=== PATIENT | male | born 1960 | race Caucasian/White ===

== ENCOUNTER → 2024-03-06 11:33 | Outpatient (REF) | payer MEDICARE, SELFPAY ==
[2024-03-06 12:59] LABS: % Basophils 1.2 % (0-2); % Immature Granulocytes 0.4 % (0-0.5); % Lymphocytes 25.6 % (20.5-51.1); % Monocytes 8.1 % (1.7-9.3); % Neutrophils 63.7 % (42.2-75.2); Absolute Basophils 0.1 10^3/uL (0-0.2); Absolute Eosinophils 0.1 10^3/uL (0-0.7); Absolute Monocytes 0.6 10^3/uL (0.1-0.6); Absolute Neutrophils 4.9 10^3/uL (1.4-6.5); Hematocrit 48.8 % (39.0-52.0); Hemoglobin 17.1 g/dL (13.0-18.0); Mean Platelet Volume 9.6 fL (7.4-10.4); Nucleated Red Blood Cells % 0 % (-); Platelet Count 251 10^3/uL (130-400); Red Blood Cell Count 5.03 10^6/uL (4.70-6.10); White Blood Cell Count 7.7 10^3/uL (4.8-10.8)
[2024-03-06 13:28] LABS: Free T4 1.02 ng/dl (0.78-2.19); Vitamin D, 25-OH*** 30.6 ng/mL (30-80)
[2024-03-06 13:32] LABS: ALT (SGPT) 46 U/L (0-50); AST (SGOT) 36 U/L (17-59); Albumin 4.6 g/dl (3.5-5.0); Alkaline Phosphatase 64 U/L (38-126); Blood Urea Nitrogen 9 mg/dl (9-20); Calcium 9.6 mg/dl (8.4-10.2); Carbon Dioxide 22 mmol/L (22-30); Chloride 99 mmol/L (98-107); Glucose 76 mg/dl (70-99); HDL Cholesterol 59 mg/dl; LDL Cholesterol, Calculated 115 mg/dl; Potassium 4.5 mmol/L (3.5-5.1); Sodium 133 mmol/L (135-145); Total Bilirubin 0.6 mg/dl (0.2-1.3); Total Cholesterol 205 mg/dl (50-199); Total Protein 7.4 g/dl (6.3-8.2); Triglyceride 158 mg/dl (10-149); Very Low Density Lipoprotein 31 mg/dl (0-30); eGFR > 60.00
[2024-03-06 13:41] LABS: PSA, Total - Screen 1.28 ng/ml (0.0-4.0); TSH 2.93 uIU/ml (0.47-4.68)
== END ==
LOC: REG 11:33
PROVIDERS: ATTENDING PHYSICIAN Physician Assistant
DX: M54.16 Radiculopathy, lumbar region (principal); Z12.5 Encounter for screening for malignant neoplasm of prostate; E03.9 Hypothyroidism, unspecified; I10 Essential (primary) hypertension; F32.9 Major depressive disorder, single episode, unspecified; E55.9 Vitamin D deficiency, unspecified; E78.2 Mixed hyperlipidemia; F10.10 Alcohol abuse, uncomplicated
CPT/HCPCS: 36415; 72110; 80053; 80061; 82306; 84439; 84443; 85025; G0103

== ENCOUNTER → 2024-05-06 11:19 | Outpatient (REF) | payer MEDICARE, SELFPAY | LOC: MRI 3T 11:19 | PROVIDERS: ATTENDING PHYSICIAN Internal Medicine; FAMILY PHYSICIAN Physician Assistant | DX: M54.59 Other low back pain (principal); M47.817 Spondylosis without myelopathy or radiculopathy, lumbosacral region; M51.36 Other intervertebral disc degeneration, lumbar region; M54.16 Radiculopathy, lumbar region; M48.062 Spinal stenosis, lumbar region with neurogenic claudication | CPT/HCPCS: 72148 ==

== ENCOUNTER → 2025-07-24 10:13 | Outpatient (REF) | payer MEDICARE, SELFPAY ==
[2025-07-24 11:24] LABS: Hematocrit 49.0 % (39.0-52.0); Hemoglobin 16.9 g/dL (13.0-18.0); Mean Corp Hgb Conc. 34.5 g/dL (33.0-37.0); Mean Corpuscular Volume 98.0 fL (80.0-94.0); Nucleated Red Blood Cells % 0 % (-); Platelet Count 273 10^3/uL (130-400); Red Cell Dist. Width 12.7 % (11.5-14.5)
[2025-07-24 11:54] LABS: ALT (SGPT) 28 U/L (0-50); AST (SGOT) 24 U/L (17-59); Albumin 4.7 g/dl (3.5-5.0); Alkaline Phosphatase 61 U/L (38-126); Blood Urea Nitrogen 6 mg/dl (9-20); Calcium 9.7 mg/dl (8.4-10.2); Carbon Dioxide 28 mmol/L (22-30); Chloride 98 mmol/L (98-107); Glucose 97 mg/dl (70-99); HDL Cholesterol 71 mg/dl; LDL Cholesterol, Calculated 131 mg/dl; Potassium 4.8 mmol/L (3.5-5.1); Sodium 133 mmol/L (135-145); Total Protein 7.7 g/dl (6.3-8.2); Uric Acid 3.1 mg/dl (3.5-8.5); Very Low Density Lipoprotein 18 mg/dl (0-30); eGFR > 60.00
[2025-07-24 12:18] LABS: PSA, Total - Screen 1.25 ng/ml (0.0-4.0)
== END ==
LOC: REG 10:13
PROVIDERS: ATTENDING PHYSICIAN Physician Assistant
DX: M25.50 Pain in unspecified joint (principal); I10 Essential (primary) hypertension; E03.9 Hypothyroidism, unspecified; F32.9 Major depressive disorder, single episode, unspecified; E55.9 Vitamin D deficiency, unspecified; E78.2 Mixed hyperlipidemia; K21.9 Gastro-esophageal reflux disease without esophagitis; F17.200 Nicotine dependence, unspecified, uncomplicated; Z12.5 Encounter for screening for malignant neoplasm of prostate
CPT/HCPCS: 36415; 80053; 80061; 84443; 84550; 85025; G0103

== ENCOUNTER → 2025-08-27 06:53 | Outpatient (REF) | payer MEDICARE, SELFPAY ==
[2025-08-27 08:31] LABS: Urine Character Clear (Clear)
[2025-08-27 08:58] LABS: Hematocrit 48.4 % (39.0-52.0); Hemoglobin 16.6 g/dL (13.0-18.0); Mean Corp Hgb Conc. 34.3 g/dL (33.0-37.0); Mean Corpuscular Volume 96.2 fL (80.0-94.0); Nucleated Red Blood Cells % 0 % (-); Platelet Count 267 10^3/uL (130-400); Red Cell Dist. Width 13.2 % (11.5-14.5)
[2025-08-27 10:52] LABS: Urine Squamous Cell 0-2 /LPF (Few)
[2025-08-27 10:53] LABS: Urine Red Blood Cell 0-2 /HPF (0-2); Urine White Cell 0-2 /HPF (0-5)
[2025-08-27 11:04] LABS: ALT (SGPT) 29 U/L (0-50); AST (SGOT) 27 U/L (17-59); Albumin 4.6 g/dl (3.5-5.0); Alkaline Phosphatase 59 U/L (38-126); Blood Urea Nitrogen 6 mg/dl (9-20); Calcium 9.3 mg/dl (8.4-10.2); Carbon Dioxide 26 mmol/L (22-30); Chloride 97 mmol/L (98-107); Glucose 101 mg/dl (70-99); Potassium 4.5 mmol/L (3.5-5.1); Sodium 130 mmol/L (135-145); Total Protein 7.6 g/dl (6.3-8.2); Uric Acid 4.2 mg/dl (3.5-8.5); eGFR > 60.00
== END ==
LOC: RAD 06:53
PROVIDERS: ATTENDING PHYSICIAN Surgery Vascular Surgery; FAMILY PHYSICIAN Physician Assistant
DX: I73.9 Peripheral vascular disease, unspecified (principal); R82.998 Other abnormal findings in urine; E87.1 Hypo-osmolality and hyponatremia; I10 Essential (primary) hypertension; L03.90 Cellulitis, unspecified
CPT/HCPCS: 36415; 75635; 80053; 81003; 81015; 83930; 83935; 84550; 85025; 88112; 93922; 93925; Q9967

== ENCOUNTER 2025-08-31 06:23 | Inpatient (IN) | payer MEDICARE, SELFPAY ==
[2025-08-31] VITALS (9 sets, daily range): BP systolic 119–182; BP diastolic 87–126; BMI 32.4
[2025-08-31] MEDS: PERIDEX 0.12% ORAL RINSE 15 ML PO (07:04)
[2025-08-31] MEDS: VANCOCIN 530 MG IV (07:09)
[2025-08-31] MEDS: NSS 500 IV (07:10)
[2025-08-31] MEDS: BACTROBAN NASAL 1 GRAM NASAL (07:14)
--- NOTE | 2025-08-31 07:19 | W.SUR.PREOP ---
Pre-Operative Surgical Note
-
I have examined this patient prior to the performance of the scheduled procedure.
The patient's condition is unchanged from the time of the current History and
Physical and the patient is able to undergo the scheduled procedure.
[2025-08-31 09:09] LABS: B.E. - POC -3.3 mmol/L; Glucose - POC 110 mg/dl (70-99); HCO3 - POC 22 mmol/L (21-28); Hematocrit - POC 42 % PCV (42-52); Hemodilution- POC No; Hemoglobin Calculated - POC 14.4; Ionized Calcium - POC 1.06 mmol/L (1.15-1.33); Lactate - POC 1.19 mmol/L (0.36-0.75); O2 Saturation %Calculated-POC 99.8 % (94-98); PCO2 - POC 40 mmHg (35-48); PO2 - POC 232 mmHg (83-108); Potassium - POC 8.1 mmol/L (3.5-5.1); Sodium - POC 129 mmol/L (136-145); Specimen Type - POC Arterial; pH - POC 7.35 (7.35-7.45)
[2025-08-31 09:17] LABS: INR 1.06; PT 14.1 Sec (11.4-14.6)
[2025-08-31 09:18] LABS: APTT 26.8 Sec (23.4-35.0)
[2025-08-31 11:00] LABS: B.E. - POC -4.6 mmol/L; Glucose - POC 132 mg/dl (70-99); HCO3 - POC 21 mmol/L (21-28); Hematocrit - POC 43 % PCV (42-52); Hemodilution- POC No; Hemoglobin Calculated - POC 14.5; Ionized Calcium - POC 1.08 mmol/L (1.15-1.33); Lactate - POC 1.23 mmol/L (0.36-0.75); O2 Saturation %Calculated-POC 99.7 % (94-98); PCO2 - POC 41 mmHg (35-48); PO2 - POC 221 mmHg (83-108); Potassium - POC 5.2 mmol/L (3.5-5.1); Sodium - POC 133 mmol/L (136-145); Specimen Type - POC Arterial; pH - POC 7.32 (7.35-7.45)
--- NOTE | 2025-08-31 12:07 | OR.RPT ---
Operative Report
Operative Report
PROCEDURE DATE: 08/31/2025
Preoperative diagnosis: Chronic limb threatening ischemia right lower extremity.
Postoperative diagnosis: Same
Procedure: Right femoral to below the knee popliteal artery bypass with ipsilateral nonreversed greater saphenous vein conduit.
Surgeon: Chance
Pick And Shovel Worker: ARMIDA Neil, required for all aspects of procedure including assistance with traction/countertraction, following suture line, assistance with closure.
Complications: None
Anesthesia: General
Indications for procedure:
Chronic limb-threatening ischemia with severe ischemic rest pain right foot. Long segment flush occlusion of the superficial femoral artery and popliteal artery. Risk/benefits/alternatives of bypass were fully discussed. Patient understood and
wished to proceed. Due to severity of his pain and symptoms and severe rubor on exam, he was expedited for bypass.
Description of procedure:
Patient was identified brought to the operating room placed on the table in supine position. After the adequate administration of anesthesia he was prepped and draped in the standard surgical fashion. A standard preoperative timeout was undertaken
and everybody was in agreement the plan. An oblique incision was made in the right groin that was carried through the skin and subcutaneous tissue and through Celeste's fascia layer, and then the femoral sheath was incised in a longitudinal
direction (despite the oblique incision). Common femoral artery was identified and carefully dissected proximally, and a vessel loop passed around it after careful circumferential dissection. It was noted to be very soft. I then continued
dissection onto the superficial femoral artery and then passed a vessel loop around it. While the common femoral artery was nicely soft and pulsatile, there is no pulse in the superficial femoral artery. I then dissected back to the profunda
origin. In the common femoral artery on the medial side just proximal to the profunda origin there was an additional posterior running branch that was carefully circumferentially dissected and vessel loop passed around it. Then the profunda was
carefully circumferentially dissected at its origin and a vessel loop passed around it.
Now I turned my attention to distal exposure. I had marked the greater saphenous vein course with an ultrasound prior to prepping and draping. I therefore carefully made an incision in the medial proximal right calf about 1 fingerbreadth inferior
to the tibia. This carried through skin subcutaneous tissue. The greater saphenous vein was identified in the subcutaneous tissues. I carefully dissected it and mobilized it. Any branches were ligated between silk ties and divided to allow
better exposure. Once I was able to mobilize the greater saphenous vein I then retracted out of the way and then incised the crural fascia with the electrocautery. Once through the crural fascial plane, I then identified the gastrocnemius muscle
and reflected posteriorly. The popliteal vein was first identified, and then just medial was the popliteal artery which I carefully circumferentially dissected for suitable length. It was noted to be soft. I now passed a vessel loop around it
proximally and distally.
Now that I had proximal and distal arterial exposure, I turned my attention to the greater saphenous vein. As I had started mobilizing it in this incision, I then made 2 separate longitudinal long skip incisions along the thigh and fully mobilized
it through these incisions (and the distal arterial exposure incision as well). Any branches were ligated between silk ties and clips and then divided. As such I was able to mobilize a suitable length of vein. Proximally I connected it into the
groin incision. There was a large branch confluence just proximal to the saphenofemoral junction. I elected to ligate the vein just distally to here. I used a 2-0 silk suture ligature and ligated the vein there and then transected just distal to
there. Distally in the calf the vein was ligated at its distalmost extent of exposure with a heavy silk tie and a clip. We now distended the vein under heparinized saline. It distended well.
Now, a Immanuel tunneler was used to create a subsartorial tunnel between the 2 arterial exposure sites (the groin and the below the knee popliteal artery). Now the patient was given 8000's of intravenous heparin. Once this had circulated, the
profunda double loop vessel loop was tightened. Other branch vessel loop was also tightened. Common femoral artery was clamped proximally with a Derra clamp. Note I tried to preserve a small portion of the superficial femoral artery to try to do
an end-to-end anastomosis (the SFA and popliteal artery completely occluded with thrombus based on CT scan and there were no real branches emanating from it). I felt that I might be able to tease clot out of the proximal SFA and therefore save a
slight amount of vein length. I therefore ligated the SFA distally in the field here with a heavy silk tie. I then transected it. There was thrombus. However I difficulty getting this thrombus out. I therefore ended up having to make an
arteriotomy on the anterior wall of the proximal stump of SFA that extended onto the very distal common femoral/femoral bifurcation. I therefore then essentially created a spatulation in the proximal SFA to allow an end-to-end anastomosis here.
The posterior wall had a little plaque which I locally endarterectomized small portion. The remainder of the plaque was well adherent. There was no stenosis. Based on the initial plaque is on the SFA, I suspect that the this was a primary in situ
thrombotic event in the SFA that had resulted in the occlusion. Regardless at this point I now spatulated the greater saphenous vein maintaining it in a nonreversed fashion. I then sewed an end-to-end anastomosis to the very proximal SFA that had
been spatulated as well. (End-to-end spatulated anastomosis) with a running 6-0 Prolene suture. I completed and tied down the suture line. I then released the common femoral artery clamp. I then used a [employer] valvulotome to valvulotomize all the
valves, and I ran through the valvulotome twice to ensure no retained valves. Now I released the vessel loop in the profunda as well after I flushed out the vein graft. I now marked the anterior surface of the vein graft under distention to avoid
any kinking or twisting and then passed it through the tunnel. I confirm no kinking or twisting. There is excellent pulsatile flow still.
placed a bulldog clamp on the vein graft proximally. I now ligated the popliteal artery very proximally in my field with a heavy silk tie and a clip. I placed a clamp on the distal popliteal artery. I then transected just distal to the ligature.
Now I had a slightly mobilized segment of popliteal artery. Therefore I was able to then spatulated this, and then trimmed and spatulated the distal aspect of the vein graft and so a spatulated end-to-end anastomosis between the vein graft and the
popliteal artery. Prior to completing and tying down my suture line I backbled the creek popliteal artery, and then flushed out the vein bypass graft. I flushed heparinized saline. I then completed and tied down my suture line. Now I released
clamps and bulldogs. There is excellent pulsatile flow in the vein graft and in the popliteal artery distally. Doppler confirmed an excellent graft dependent signal. I could now palpate a dorsalis pedis pulse on the foot. Doppler confirmed
excellent graft dependent signal.
At this point I was very satisfied. I ensured that there was no mechanical compression of the vein graft distally, and with the knee in flexion and extension. I was very satisfied. All incision sites were copiously irrigated. Full hemostasis was
achieved and confirmed (protamine was given reverse heparin). All incision sites were then closed using layered Vicryl suture (2-0 Vicryl, 3-0 Vicryl, 4-0 Monocryl subcuticular running sutures). Dermabond was applied. Dressings were applied. The
patient tolerated the procedure well. All sponge, needle, instrument counts were correct at the end of the case. The patient was transported to recovery room in stable condition.
[2025-08-31 12:29] LABS: Glucose - Point of Care 135 mg/dl (70-99)
[2025-08-31] MEDS: DUONEB 3 ML INH (12:31)
[2025-08-31 12:47] LABS: Hematocrit 43.6 % (39.0-52.0); Hemoglobin 15.0 g/dL (13.0-18.0); Mean Corp Hgb Conc. 34.4 g/dL (33.0-37.0); Mean Corpuscular Volume 96.9 fL (80.0-94.0); Platelet Count 236 10^3/uL (130-400); Red Cell Dist. Width 13.1 % (11.5-14.5)
[2025-08-31 12:49] LABS: Blood Urea Nitrogen 3 mg/dl (9-20); Calcium 8.0 mg/dl (8.4-10.2); Carbon Dioxide 23 mmol/L (22-30); Chloride 102 mmol/L (98-107); Estimated Creatinine Clearance 121 ml/min; Glucose 134 mg/dl (70-99); Potassium 5.0 mmol/L (3.5-5.1); Sodium 128 mmol/L (135-145); eGFR > 60.00
--- NOTE | 2025-08-31 14:02 | CON.INTV ---
Consultation
Consultation Request
Date/Time Consultation Requested: 08/31/2025831
Date/Time Consultation Performed: 08/31/2025900
Requesting Provider: VANDANA Mukherjee
Performing Provider: Dr. Thomas
Reason for Consultation: Right lower extremity arterial bypass
Medical History
-
Chief Complaint: Right foot pain
History of Present Illness:
65-year-old male active tobacco smoker (currently smokes 2 PPD) with a past medical history of PAD, GERD, hypertension, hypothyroidism and alcohol use who presents for elective right arterial bypass due to right foot resting pain. Patient known to
the vascular surgery service with last visit on 08/28/[address] Fletcher. Recent FRANK of the right leg showed severely reduced measurement of 0.19 with absent digital signal with long segment SFA occlusion with reconstitution of monophasic continuous
flow within the popliteal artery. Left leg FRANK was within normal limits at 1.07 with multiphasic flow throughout the leg with no focal or flow-limiting stenosis appreciated. This was followed by a CT angio abdominal aorta with runoff on 08/27/2025
showing aortic atherosclerotic changes without an aneurysm or flow-limiting stenosis, and a long segment occlusion of right SFA/popliteal artery with occlusion of the TP trunk with reconstitution of peroneal and posterior tibial in the proximal
calf. Given concern for a relatively acute/subacute occlusion of the right SFA in the setting of his severe constant right foot pain (started approximately 2 months ago after stubbing his foot, he was recommended for a vascular intervention which
he agreed to. Today, he underwent a right femoral to below the knee popliteal artery bypass with ipsilateral nonreversed greater saphenous vein conduit. There were no complications. He was transferred to be ICU postoperatively for further care,
and Health Education Director service consulted for additional management/recommendations.
When I saw the patient he was resting in bed in no acute distress. He says that the right sided heel pain is not there anymore. Heart rate currently 116, BP 169/93 (via A-line), and he is saturating 89-90% on room air and breathing comfortably.
Currently denies chest pain, ADHIKARI, nausea, vomiting, fevers chills.
Of note, pt had arrived to ICU at approximately 1350.
PMHx: PAD, hyperlipidemia, GERD, hypothyroidism, hypertension, alcohol use, tobacco use (currently smokes 2 PPD)
PSHx: Non-contributory
Past Medical History
Past Medical History: Other (Above as per HPI)
Past Surgical History: Other (Above as per HPI)
Social History
Tobacco: Smoker (Carries a >95-38-swfo-year history, smoking between 1-2 PPD (even up to 3PPD at one point) x 50 years (has also quit 2-3 times in the past))
Alcohol: Daily (12 Michelob beers per day)
Drug: None
Family History
Family History: Reviewed & Not Pertinent
Allergies / Home Medications
Allergies
Allergy/AdvReac Type Severity Reaction Status Date / Time
Penicillins Allergy diarrhea Verified 08/28/25 13:06
Home Medications
�Medication �Instructions �Recorded �Confirmed �Last Taken �Type
acetaminophen 325 mg tablet 650 mg PO Q4H PRN pain 08/28/25 08/31/25 08/30/25 09:00 History
(Tylenol)
losartan 50 mg tablet 50 mg PO DAILY Blood Pressure 08/28/25 08/31/25 08/27/25 19:00 History
metoprolol succinate 25 mg 25 mg PO DAILY Blood Pressure 08/28/25 08/31/25 08/27/25 09:00 History
tablet,extended release 24 hr
naproxen sodium 220 mg tablet 220 mg PO Q12H PRN pain 08/28/25 08/31/25 08/28/25 09:00 History
(Aleve)
Review of Systems
-
History Source: Patient
All other systems: Negative unless noted
Vitals / Labs / Diagnostic Testing
Vital Signs
Temp Pulse Resp BP Pulse Ox
99.2 F 106 9 133/95 95
08/31/25 15:01 08/31/25 13:00 08/31/25 13:00 08/31/25 13:00 08/31/25 17:21
Lab Data
08/31/25 12:26
08/31/25 12:26
Laboratory Results
08/31/25
08:50
PT 14.1
INR 1.06
APTT 26.8
Diagnostic Testing:
Physical Exam
-
HEENT: Normocephalic and Anicteric
Cardiovascular: S1/S2 and Peripheral Edema (negative)
Respiratory: Wheeze (negative), Rales (negative), Rhonchi (negative) and Non-Labored Respirations
GI: Soft, Non Distended, Non Tender and Normal Bowel Sounds
Neurology: Awake, Alert, Oriented and Tremors (negative)
Skin: Warm and Dry
General: Respiratory Distress (negative), Comfortable, Fever (negative) and Chills (negative)
Assessment
-
Assessment: 65-year-old male active tobacco smoker (currently smokes 2 PPD) with a past medical history of PAD, GERD, hypertension, hypothyroidism and alcohol use who presents for elective right arterial bypass due to right foot resting pain.
Patient known to the vascular surgery service with last visit on 08/28/[address] Fletcher. Recent FRANK of the right leg showed severely reduced measurement of 0.19 with absent digital signal with long segment SFA occlusion with reconstitution of
monophasic continuous flow within the popliteal artery. Left leg FRANK was within normal limits at 1.07 with multiphasic flow throughout the leg with no focal or flow-limiting stenosis appreciated. This was followed by a CT angio abdominal aorta
with runoff on 08/27/2025 showing aortic atherosclerotic changes without an aneurysm or flow-limiting stenosis, and a long segment occlusion of right SFA/popliteal artery with occlusion of the TP trunk with reconstitution of peroneal and posterior
tibial in the proximal calf. Given concern for a relatively acute/subacute occlusion of the right SFA in the setting of his severe constant right foot pain (started approximately 2 months ago after stubbing his foot, he was recommended for a
vascular intervention which he agreed to. On 08/31/2025, he underwent a right femoral to below the knee popliteal artery bypass with ipsilateral nonreversed greater saphenous vein conduit. There were no complications. He was transferred to be ICU
postoperatively for further care, and Health Education Director service consulted for additional management/recommendations.
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
Impression:
#Chronic limb threatening ischemia of right lower extremity s/p right femoral to below the knee popliteal artery bypass with ipsilateral nonreversed great saphenous vein conduit (POD #0)
#Leukocytosis
#Hyponatremia
#Hypocalcemia
Plan:
Postoperative surgical intensive care unit monitoring
Supplemental oxygen as needed to maintain SpO2 >90-94%
prn nebulized bronchodilators - not currently bronchospastic
Incentive spirometry encouraged 10x per hour for at least 4 hrs a day
Aspiration precautions
Pain control
Neuro and vascular checks per protocol
Maintain MAP>65
Replete electrolytes with K>4, Mg>2
Maintain euglycemia with goal BG 140-180
Vascular surgery following-correspondence and operative notes reviewed
Transfuse blood products as needed to keep Hb>7g/dL, and plt>50k (given post-operative status)
Given patient's significant tobacco use, he likely has COPD however he remains asymptomatic. Offered pulmonary office follow-up for full PFTs for a baseline. He also needs to obtain annual lung cancer screening as he qualifies via USPSTF
guidelines. I will make him an appointment to see me in the office, and hopefully he will take steps towards quitting smoking.
DVT prophylaxis
Early nutrition
Early mobilization
Critical care statement: A total of 44 minutes of critical care time was provided for this patient today. This includes management of unstable vital signs, evaluation of the patient at bedside, reviewing the patient's pertinent medical records
including radiographs, microbiology, laboratory evaluations, and discussion with primary team, consultants, pharmacy, nutrition, physical therapy, case management, charge nurse, critical care nursing, and respiratory therapy.
[2025-08-31 14:32] LABS: Glucose - Point of Care 150 mg/dl (70-99)
[2025-08-31] MEDS: NSS 1000 IV ×2 (15:09→22:00)
[2025-08-31] MEDS: TOPROL XL 25 MG PO (15:09)
[2025-08-31] MEDS: COZAAR 50 MG PO (15:10)
[2025-08-31] MEDS: HEPARIN 5000 UNITS SC (16:17)
[2025-08-31] MEDS: LOW STRENGTH ASPIRIN 81 MG PO (16:17)
[2025-08-31] MEDS: ROXICODONE 5 MG PO (16:47)
[2025-08-31] MEDS: LIPITOR 10 MG PO (16:47)
[2025-08-31 17:12] LABS: GGTP 42 U/L (15-73); Magnesium 2.1 mg/dl (1.6-2.3)
--- NOTE | 2025-08-31 17:37 | PTCARENOTE ---
1350-Received pt from PACU via bed.Pt is awake and alert.Speech is appropriate.Pt c/o right heel and occasional right groin pain.+CHAVIRA.SR noted.IVF infusing.Right A Line at mid axillary.POX 95% on RA.+ FLOOD.Inspiratory/expiratory wheeze and coarse
rhonchi throughout.Occasional moist non productive cough noted.Appetite good.Rodriguez draining yellow urine.Right groin,right leg incisions intact with dressings.BL DP by Doppler signal.
1430- BP 175/100.ELECTRICAL SYSTEMS ENGINEER made aware.Pt received Cozaar and Metoprolol as ordered.
1650-Pt c/o right heel pain.Received Oxycodone.Right heel elevated with pillow.
[2025-08-31] MEDS: DILAUDID 0.5 MG IV (18:44)
[2025-08-31 18:48] LABS: Urine Character Clear (Clear)
[2025-08-31] MEDS: ATIVAN 1 MG PO (19:27)
[2025-08-31] MEDS: THIAMINE INJECTION 200 MG IV (19:27)
--- NOTE | 2025-08-31 19:30 | PTCARENOTE ---
Unable to verify accuracy of vital signs prior to 1900.
[2025-08-31 19:38] LABS: Urine Red Blood Cell >100 /HPF (0-2); Urine Squamous Cell 0-2 /LPF (Few)
--- NOTE | 2025-08-31 20:00 | PTCARENOTE ---
Assumed care at 1900. Status post RLE arterial bypass. NSR on the monitor. See worklist for neurovascular check details. PRN ativan given for MSAS. Patient states that 'somebody needs to bring me a beer.'
[2025-09-01] VITALS (15 sets, daily range): BP systolic 139–182; BP diastolic 88–135; BMI 30.7
[2025-09-01] MEDS: HEPARIN 5000 UNITS SC ×4 (00:02→22:58)
--- NOTE | 2025-09-01 00:42 | PTCARENOTE ---
No change from previous assessment. A line leveled and zeroed. q1h neurovascular/skin checks continue.
[2025-09-01] MEDS: ROXICODONE 5 MG PO ×5 (03:18→20:32)
[2025-09-01 03:20] LABS: Hematocrit 41.8 % (39.0-52.0); Hemoglobin 14.0 g/dL (13.0-18.0); Mean Corp Hgb Conc. 33.5 g/dL (33.0-37.0); Mean Corpuscular Volume 102.2 fL (80.0-94.0); Platelet Count 203 10^3/uL (130-400); Red Cell Dist. Width 13.4 % (11.5-14.5)
[2025-09-01 03:33] LABS: INR 1.07; PT 14.3 Sec (11.4-14.6)
[2025-09-01 03:34] LABS: APTT 27.0 Sec (23.4-35.0)
[2025-09-01 04:40] LABS: Blood Urea Nitrogen 6 mg/dl (9-20); Calcium 8.6 mg/dl (8.4-10.2); Carbon Dioxide 25 mmol/L (22-30); Chloride 103 mmol/L (98-107); Estimated Creatinine Clearance 118 ml/min; Glucose 102 mg/dl (70-99); Potassium 4.3 mmol/L (3.5-5.1); Sodium 130 mmol/L (135-145); eGFR > 60.00
[2025-09-01] MEDS: DILAUDID 0.5 MG IV ×4 (06:15→22:57)
--- NOTE | 2025-09-01 06:50 | PTCARENOTE ---
NO change from previous assessment. A line dressing changed due to leaking. PRN oxycodone and dilaudid given for RLE pain. Neurovascular and skin checks WNL. See worklist for details.
--- NOTE | 2025-09-01 07:42 | W.PN.VS ---
Addendum entered and electronically signed by Joe Ambrosio III, MD 09/01/25 11:29:
Patient was seen and examined in collaboration with VANDANA Duarte. I agree with the history, physical exam, assessment and plan.
[id number]
Vascular Surgery
Original Note:
Today's Communication / Plan
-
Seen and accessed with Dr Ambrosio
Assessment/Plan
-
POD 1 RLE fem-below knee pop bypass with vein graft
Plan:
DC Whigham
DC ambrosio
DC IVF
OOB-chair this am, can progress to ambulation later today
Increase diet
PO meds
Alcohol withdrawal protocol
Likely can transfer to tele later today
Subjective Data
-
Date of Service: September 01, 2025
Pt seen at bedside this am with Dr Ambrosio. Pt offers no complaints at this time. No events overnight.
Objective Data
-
Vital Signs
Temp Pulse Resp BP Pulse Ox
97.8 F 87 23 139/88 94
09/01/25 05:07 09/01/25 06:30 09/01/25 06:30 08/31/25 13:15 08/31/25 18:30
Intake and Output
08/31/25 09/01/25 09/02/25
06:59 06:59 06:59
Intake Total 2180 / 2180
Output Total 3290 / 3290
Balance -1110 / -1110
Intake:
Oral fluids 720 / 720
IV fluids (Total) 1460 / 1460
NSS 100 / 100
Nss 1,000 ml @ 80 mls/hr IV . 1360 / 1360
[id number] [id number] Rx#:[id number]
Output:
UrineJennifer 3290 / 3290
Lab Results
09/01/25 03:12
09/01/25 04:03
Calcium 8.6 mg/dl (8.4-10.2) 09/01/25 04:03
Phosphorus Cancelled 08/31/25 13:43
Magnesium Cancelled 08/31/25 13:43
Total Bilirubin Cancelled 08/31/25 08:32
Direct Bilirubin Cancelled 08/31/25 08:32
AST Cancelled 08/31/25 08:32
ALT Cancelled 08/31/25 08:32
Alkaline Phosphatase Cancelled 08/31/25 08:32
Total Protein Cancelled 08/31/25 08:32
Albumin Cancelled 08/31/25 08:32
Physical Exam
-
AAOx3
No tachypnea on RA
No tachycardia at this time
Abd soft
RLE surgical dressings intact with no drainage noted
all sites soft
R foot pink, warm
palpable DP pulse
--- NOTE | 2025-09-01 08:10 | W.PN.INTV ---
Today's Communication / Plan
Recommendations
Postoperative management as per vascular surgery
ASA + statin
Thiamine, folate and MSAS
Pain control
Encourage incentive spirometer
Patient is stable for downgrade out of ICU to telemetry. This was agreed upon by vascular surgery. No additional recommendations at this time. Grey Inspector/Pulmonary service will now sign off. Please reconsult if there are any additional
questions/concerns, or if patient's respiratory status deteriorates.
Assessment
-
Assessment: 65-year-old male active tobacco smoker (currently smokes 2 PPD) with a past medical history of PAD, GERD, hypertension, hypothyroidism and alcohol use who presents for elective right arterial bypass due to right foot resting pain.
Patient known to the vascular surgery service with last visit on 08/28/[address] Fletcher. Recent FRANK of the right leg showed severely reduced measurement of 0.19 with absent digital signal with long segment SFA occlusion with reconstitution of
monophasic continuous flow within the popliteal artery. Left leg FRANK was within normal limits at 1.07 with multiphasic flow throughout the leg with no focal or flow-limiting stenosis appreciated. This was followed by a CT angio abdominal aorta
with runoff on 08/27/2025 showing aortic atherosclerotic changes without an aneurysm or flow-limiting stenosis, and a long segment occlusion of right SFA/popliteal artery with occlusion of the TP trunk with reconstitution of peroneal and posterior
tibial in the proximal calf. Given concern for a relatively acute/subacute occlusion of the right SFA in the setting of his severe constant right foot pain (started approximately 2 months ago after stubbing his foot, he was recommended for a
vascular intervention which he agreed to. On 08/31/2025, he underwent a right femoral to below the knee popliteal artery bypass with ipsilateral nonreversed greater saphenous vein conduit. There were no complications. He was transferred to be ICU
postoperatively for further care, and Grey Inspector service consulted for additional management/recommendations.
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
Impression:
#Chronic limb threatening ischemia of right lower extremity s/p right femoral to below the knee popliteal artery bypass with ipsilateral nonreversed great saphenous vein conduit (POD #1)
#Leukocytosis
#Hyponatremia
#Hypocalcemia
Plan:
Postoperative surgical intensive care unit monitoring
Supplemental oxygen as needed to maintain SpO2 >90-94%
prn nebulized bronchodilators - not currently bronchospastic
Incentive spirometry encouraged 10x per hour for at least 4 hrs a day
Aspiration precautions
Pain control
Neuro and vascular checks per protocol
Maintain MAP>65
Replete electrolytes with K>4, Mg>2
Maintain euglycemia with goal BG 140-180
Vascular surgery following-correspondence and operative notes reviewed
Transfuse blood products as needed to keep Hb>7g/dL, and plt>50k (given post-operative status)
Given patient's significant tobacco use, he likely has COPD however he remains asymptomatic. Offered pulmonary office follow-up for full PFTs for a baseline. He also needs to obtain annual lung cancer screening as he qualifies via USPSTF
guidelines. I will make him an appointment to see me in the office, and hopefully he will take steps towards quitting smoking.
DVT prophylaxis
Early nutrition
Early mobilization
Patient is stable for downgrade out of ICU to telemetry. This was agreed upon by vascular surgery. No additional recommendations at this time. Grey Inspector/Pulmonary service will now sign off. Thank you for allowing us to be involved in the care
of this patient. Please reconsult if there are any additional questions/concerns, or if patient's respiratory status deteriorates.
Total time spent today was 58 minutes for this encounter. Time includes reviewing laboratory test/imaging results, reviewing pertinent medical records, obtaining and reviewing medical history, performing an appropriate exam, ordering medications,
tests and procedures. Time also includes documentation of this encounter, coordinating patient care and communicating with other healthcare professionals. Total time does not include separately billed tests performed on this date of service.
Subjective Dataa
Subjective Data
Date of Service:
Date of Service: September 01, 2025
Chief Complaint: Grey Inspector Follow Up
Subjective:
Patient seen and evaluated this morning. Heart rate currently 88 and saturating 99% on room air. No events reported from overnight.
Review of Systems
General: Other (Negative unless mentioned above)
Objective Data
Data Reviewed
Vital Signs / I&O / Oxygen:
Vital Signs
Temp Pulse Resp BP Pulse Ox
99.2 F 86 19 154/99 96
09/01/25 08:00 09/01/25 09:30 09/01/25 09:30 09/01/25 09:17 09/01/25 08:00
Intake and Output
08/31/25 09/01/25 09/02/25
06:59 06:59 06:59
Intake Total 2180 / 2260 660 / 660
Output Total 3290 / 3410 300 / 300
Balance -1110 / -1150 360 / 360
SaO2 96
Physical Exam
General: Respiratory Distress (negative) and Comfortable
HEENT: Normocephalic and Anicteric
Cardiovascular: S1-S2 and Peripheral Edema (negative)
Respiratory: Wheeze (negative), Crackles (negative), Rhonchi (negative) and Non-Labored Respirations
GI: Soft, Non Distended and Non Tender
Neurology: Awake, Alert and Tremors (negative)
Skin: Warm, Dry, Cyanosis (negative) and Jaundice (negative)
Labs/Micro/Reports
Lab Data
09/01/25 03:12
09/01/25 04:03
Laboratory Results
09/01/25
03:12
PT 14.3
INR 1.07
APTT 27.0
[2025-09-01] MEDS: FOLVITE 1 MG PO (08:21)
[2025-09-01] MEDS: LOW STRENGTH ASPIRIN 81 MG PO (08:21)
[2025-09-01] MEDS: COZAAR 50 MG PO (08:21)
[2025-09-01] MEDS: TOPROL XL 25 MG PO (08:21)
[2025-09-01] MEDS: THIAMINE INJECTION IV (08:22)
--- NOTE | 2025-09-01 09:00 | PTCARENOTE ---
Received pt awake and alert.Speech is appropriate.+4-5/5 CHAVIRA.c/o moderate-severe right foot/heel and right leg incisional pain.SR-ST noted.IVF and A Line discontinued as ordered.+ Doppler DP pulses bilateral.Scattered wheeze,and coarse rhonchi
noted.Occasional non productive cough.+FLOOD and tachypnea noted.POX 96% on RA.Appetite excellent.No BM.Pt does not want Rodriguez discontinued.MD aware.Pt educated regarding infection prevention protocol for Rodriguez removal.Right groin leg incision intact
with dressings.Plan of care discussed.
--- NOTE | 2025-09-01 12:33 | PTCARENOTE ---
Pt assessed.No change in assessment noted.c/o moderate to severe right leg and foot pain.Medicated with fair relief.Pt declines getting oob at this time.Pt declines Rodriguez removal at this time.
--- NOTE | 2025-09-01 13:22 | PTCARENOTE ---
Pt states he will allow Rodriguez removal and to be assisted oob after he sleeps this afternoon.
--- NOTE | 2025-09-01 14:53 | CM ---
Addendum entered by Suzanne Shay 09/01/25 15:05:
[facility] visited and patient has declined services.
Original Note:
Initial assessment completed with patient who lives alone in a 1 story plus basement home with 3 steps to enter. 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 Patient Has a SPC and w/ch in the home. No in-home services.
Does have a HC-POA. No VA Benefits. Has had a psychiatric hospitalization in 2004 for suicide attempt. Does not have SI currently or since psychiatric admission. PCP is internal Medicine-Richa ARRIAGA. Pharmacy is [facility] on [facility] in .
Discharge POC: TBD. Patient has declined HH RN at this time.
--- NOTE | 2025-09-01 15:43 | PTCARENOTE ---
Pt assessed.Rodriguez discontinued at 1500.Assisted oob with 2 person max assist.Pt stated he had too much pain to bear weight on right foot.Pt receiving Oxycodone and Dilaudid frequently as requested.Dr Thomas made aware.Pt tolerated 40 minutes oob
in chair and requested to return to bed.
--- NOTE | 2025-09-01 17:16 | PTCARENOTE ---
Report given to 2 South RN.
[2025-09-01] MEDS: LIPITOR 10 MG PO (17:20)
--- NOTE | 2025-09-01 18:02 | PTCARENOTE ---
Pt arrived to 2S in bed. + palpable DP pulses B/L. RLE and R groin DSG C/D/I, soft around the site. Telemetry maintained. Pt instructed to ring for assistance with ambulation, verbalized understanding. Bed locked and in the lowest position, safety
maintained. Oriented to room and call suarez.
[2025-09-01] MEDS: DILAUDID 1 MG IV (18:29)
[2025-09-01] MEDS: THIAMINE INJECTION 200 MG IV (20:32)
[2025-09-02] VITALS (7 sets, daily range): BP systolic 126–164; BP diastolic 77–113; PULSE 96; O2SAT 96
[2025-09-02] MEDS: ROXICODONE 5 MG PO ×5 (02:05→18:36)
[2025-09-02] MEDS: DILAUDID 1 MG IV ×5 (03:49→22:22)
[2025-09-02] MEDS: HYDROCORTISONE 1% CREAM 1 APPLIC TOPICAL (04:56)
[2025-09-02 07:02] LABS: Hematocrit 41.4 % (39.0-52.0); Hemoglobin 13.7 g/dL (13.0-18.0); Mean Corp Hgb Conc. 33.1 g/dL (33.0-37.0); Mean Corpuscular Volume 104.0 fL (80.0-94.0); Platelet Count 190 10^3/uL (130-400); Red Cell Dist. Width 13.2 % (11.5-14.5)
--- NOTE | 2025-09-02 07:15 | W.PN.VS ---
Addendum entered and electronically signed by Terrence Fletcher MD 09/02/25 07:28:
Seen and examined with ARMIDA Nolasco. Agree with findings as noted below. Patient notes incisional and leg pain. Right lower extremity incisions are all clean dry and intact. Thigh and calf are soft. No hematomas. Foot is warm! Palpable 2+ DP pulse
on the foot. Plan/as discussed and noted below.
Original Note:
Today's Communication / Plan
-
Patient seen and examined at bedside with Dr. Terrence Fletcher, below plan reviewed with attending.
Assessment/Plan
-
POD 2 RLE fem-below knee pop bypass with vein graft
Plan:
Continue to encourage ambulation
Physical therapy eval and treat
Would prefer to optimize medical management with patient on [facility] protocol of Xarelto 2.5 mg p.o. twice daily and aspirin 81 mg p.o. daily, will ask case management to luna check medication regimen
Continue diet
PO meds
Alcohol withdrawal protocol
Encourage incentive spirometry
Continue DVT prophylaxis
Subjective Data
-
Date of Service: September 02, 2025
Patient seen and examined at bedside, reports difficulty with ambulation due to pain otherwise comfortable at rest. Indicates concerns for going home as he lives alone and currently is having difficulty with ambulation. Tolerating p.o. diet.
Objective Data
-
Vital Signs
Temp Pulse Resp BP Pulse Ox
98.7 F 102 16 159/93 93
09/02/25 03:24 09/02/25 03:24 09/02/25 03:24 09/02/25 03:24 09/02/25 03:24
Intake and Output
09/01/25 09/02/25 09/03/25
06:59 06:59 06:59
Intake Total 2180 / 2260 1140 / 1140
Output Total 3290 / 3410 900 / 900
Balance -1110 / -1150 240 / 240
Intake:
Oral fluids 720 / 720 980 / 980
IV fluids (Total) 1460 / 1540 160 / 160
NSS 100 / 100
Nss 1,000 ml @ 80 mls/hr IV . 1360 / 1440 160 / 160
[id number] K[facility] Rx#:[id number]
Output:
Urine, Rodriguez 3290 / 3410 300 / 300
Urine, Voided 600 / 600
Lab Results
09/02/25 06:17
Calcium 8.6 mg/dl (8.4-10.2) 09/01/25 04:03
Phosphorus Cancelled 08/31/25 13:43
Magnesium Cancelled 08/31/25 13:43
Total Bilirubin Cancelled 08/31/25 08:32
Direct Bilirubin Cancelled 08/31/25 08:32
AST Cancelled 08/31/25 08:32
ALT Cancelled 08/31/25 08:32
Alkaline Phosphatase Cancelled 08/31/25 08:32
Total Protein Cancelled 08/31/25 08:32
Albumin Cancelled 08/31/25 08:32
Physical Exam
-
AAOx3
No tachypnea on RA
No tachycardia at this time
Abd soft
RLE surgical dressings intact and removed, all surgical incisions clean, dry, and intact well-approximated, with Exofin glue intact
all sites soft
R foot pink, warm
palpable DP pulse
[2025-09-02 07:36] LABS: Blood Urea Nitrogen 10 mg/dl (9-20); Calcium 8.7 mg/dl (8.4-10.2); Carbon Dioxide 31 mmol/L (22-30); Chloride 96 mmol/L (98-107); Estimated Creatinine Clearance 91 ml/min; Glucose 92 mg/dl (70-99); Magnesium 1.9 mg/dl (1.6-2.3); Potassium 4.4 mmol/L (3.5-5.1); Sodium 130 mmol/L (135-145); eGFR > 60.00
[2025-09-02] MEDS: COZAAR 50 MG PO (08:01)
[2025-09-02] MEDS: TOPROL XL 25 MG PO (08:02)
[2025-09-02] MEDS: HEPARIN 5000 UNITS SC ×2 (08:02→16:18)
[2025-09-02] MEDS: LOW STRENGTH ASPIRIN 81 MG PO (08:02)
[2025-09-02] MEDS: FOLVITE 1 MG PO (08:02)
[2025-09-02] MEDS: THIAMINE INJECTION IV (08:06)
[2025-09-02] MEDS: PROTONIX 40 MG PO (10:37)
[2025-09-02] MEDS: TUMS CHEWABLE TABLET 400 MG PO ×2 (12:27→18:36)
[2025-09-02] MEDS: BENADRYL 25 MG PO (14:33)
--- NOTE | 2025-09-02 15:22 | CM ---
Met with pt bedside. PT recommends skilled rehab. Pt only wants to go home. Refused HH also. Pt needs encouragement to accept SNF or HH.
Pt was willing to accept a walker to use for home. OT will supply walker. Pt also asked for a wheelchair to use at home. BART Nolasco will write scripts for both. Documentation guidelines for wheelchair have been placed on the chart. PA aware and will
document tomorrow.
Pricing for Xarelto: greater than $1000/month. Pt does not have a drug plan. aware and will send pt home with a daily ASA.
Plan: TBD
[2025-09-02] MEDS: LIPITOR 10 MG PO (17:11)
[2025-09-02] MEDS: THIAMINE INJECTION 200 MG IV (20:39)
[2025-09-03] VITALS (7 sets, daily range): BP systolic 110–149; BP diastolic 80–92; PULSE 91
[2025-09-03] MEDS: HEPARIN 5000 UNITS SC ×3 (00:16→16:15)
[2025-09-03] MEDS: ROXICODONE 5 MG PO ×4 (03:59→22:00)
[2025-09-03] MEDS: TYLENOL 650 MG PO ×3 (05:36→16:15)
[2025-09-03] MEDS: DILAUDID 0.5 MG IV ×2 (07:13→12:57)
[2025-09-03] MEDS: FOLVITE 1 MG PO (07:14)
[2025-09-03] MEDS: THIAMINE INJECTION 200 MG IV (07:14)
[2025-09-03] MEDS: PROTONIX 40 MG PO (07:14)
[2025-09-03] MEDS: TOPROL XL 25 MG PO (07:14)
[2025-09-03] MEDS: LOW STRENGTH ASPIRIN 81 MG PO (07:14)
[2025-09-03] MEDS: COZAAR 50 MG PO (07:14)
--- NOTE | 2025-09-03 07:25 | W.PN.VS ---
Addendum entered and electronically signed by Terrence Fletcher MD 09/03/25 07:41:
Seen and examined with ARMIDA Neil. Agree with findings as noted below. Patient had some pain when working with physical therapy along the incision/surgical sites. Otherwise no issues. Right lower extremity incisions are all clean dry and intact.
Thigh and calf are soft with no hematomas. Right foot is warm with easily palpable DP pulse. Plan/as discussed and noted below. Case management had reviewed [facility] protocol Xarelto with his insurance provider and found that it will cost him too
much [id number] patient cannot afford. Therefore we will continue low-dose aspirin 81 mg daily only. Continue with physical therapy today as well. Hopefully as pain improves we will increase ambulation. Patient still wants to go home no
rehab. Will reassess today and tomorrow for potential ability to discharge. Otherwise may need to stay here for further pain control, and once pain resolved and walking better will be able to go home. Surgical sites all look good.
Original Note:
Today's Communication / Plan
-
Seen and assessed with Dr. Fletcher
Assessment/Plan
-
POD 3 RLE fem-below knee pop bypass with vein graft
Plan:
Continue to encourage ambulation
Physical therapy eval and treat
Would prefer to optimize medical management with patient on [facility] protocol of Xarelto 2.5 mg p.o. twice daily and aspirin 81 mg p.o. daily, will ask case management to luna check medication regimen
Alcohol withdrawal protocol
Encourage incentive spirometry
Continue DVT prophylaxis
Elevate legs to decrease edema
Ambulatory dysfunction which will limit ability to achieve activities of daily living-will provide prescription for wheelchair, patient lives alone
Subjective Data
-
Date of Service: September 03, 2025
Patient seen at bedside this a.m. with Dr. Fletcher. Patient complains of pain with ambulating. Resting comfortably in bed at this time. No events overnight.
Objective Data
-
Vital Signs
Temp Pulse Resp BP Pulse Ox
98.2 F 94 16 149/92 93
09/03/25 03:20 09/03/25 03:20 09/03/25 03:20 09/03/25 03:20 09/03/25 03:20
Intake and Output
09/02/25 09/03/25 09/04/25
06:59 06:59 06:59
Intake Total 1140 / 1140 1434 / 1434
Output Total 900 / 900 1075 / 1075
Balance 240 / 240 359 / 359
Intake:
Oral fluids 980 / 980 1434 / 1434
IV fluids (Total) 160 / 160
Nss 1,000 ml @ 80 mls/hr IV . 160 / 160
[id number] [facility] Rx#:[id number]
Output:
Urine, Rodriguez 300 / 300
Urine, Voided 600 / 600 1075 / 1075
Other:
Number of approximated MODERATE 4
amounts of urine
Calcium 8.7 mg/dl (8.4-10.2) 09/02/25 06:17
Phosphorus 4.0 mg/dl (2.5-4.5) 09/02/25 06:17
Magnesium 1.9 mg/dl (1.6-2.3) 09/02/25 06:17
Total Bilirubin Cancelled 08/31/25 08:32
Direct Bilirubin Cancelled 08/31/25 08:32
AST Cancelled 08/31/25 08:32
ALT Cancelled 08/31/25 08:32
Alkaline Phosphatase Cancelled 08/31/25 08:32
Total Protein Cancelled 08/31/25 08:32
Albumin Cancelled 08/31/25 08:32
Physical Exam
-
AAOx3
No tachypnea on RA
No tachycardia at this time
Abd soft
RLE surgical sites clean dry and intact well-approximated, Exofin glue intact
all sites soft
R foot pink, warm
palpable DP pulse
Difficulties with ambulation due to pain with movement,
[2025-09-03 07:40] LABS: Hematocrit 41.1 % (39.0-52.0); Hemoglobin 13.6 g/dL (13.0-18.0); Mean Corp Hgb Conc. 33.1 g/dL (33.0-37.0); Mean Corpuscular Volume 104.1 fL (80.0-94.0); Platelet Count 203 10^3/uL (130-400); Red Cell Dist. Width 13.2 % (11.5-14.5)
[2025-09-03 07:45] LABS: Blood Urea Nitrogen 14 mg/dl (9-20); Calcium 9.0 mg/dl (8.4-10.2); Carbon Dioxide 30 mmol/L (22-30); Chloride 96 mmol/L (98-107); Estimated Creatinine Clearance 91 ml/min; Glucose 95 mg/dl (70-99); Potassium 4.5 mmol/L (3.5-5.1); Sodium 128 mmol/L (135-145); eGFR > 60.00
--- NOTE | 2025-09-03 15:38 | CM ---
CM following re: discharge planning.
Reviewed pt's chart, met with pt.
PT and OT evaluation noted - SNF level of care recommended. Pt is aware, expressed his agreement. Pt stated he was before at [facility] ER in the past and did not have a good experience. A list of SNF provided. Following SNFs preferred: [facility] and [facility]. A referral to above SNFs made. Awaiting for determination.
Pt stated his cat is very important to him and his girlfriend will take care of his cat.
Pt expressed to me his fear regarding paying for SNF and he was assured that Medicare covers 100 percent first 20 days.
D/C plan: preferred SNF.
[2025-09-03] MEDS: LIPITOR 10 MG PO (18:13)
[2025-09-03] MEDS: VITAMIN B1 100 MG PO (21:46)
[2025-09-04] MEDS: HEPARIN 5000 UNITS SC ×4 (00:50→23:24)
[2025-09-04] MEDS: TYLENOL 650 MG PO (00:58)
[2025-09-04 03:00] VITALS: BP 123/90
[2025-09-04 07:20] VITALS: BP 139/95
--- NOTE | 2025-09-04 07:23 | W.PN.VS ---
Addendum entered and electronically signed by Terrence Fletcher MD 09/04/25 12:38:
Seen and examined with ARMIDA Neil earlier this AM. This is a late entry. Agree with findings as noted below. RLE inc all c/d/i. No hematomas. Foot warm with 2+ DP palp. Plan/ As discussed and noted below.
Original Note:
Today's Communication / Plan
-
Seen and assessed with Dr. Fletcher
Assessment/Plan
-
POD 4 RLE fem-below knee pop bypass with vein graft
Plan:
Continue to encourage ambulation
PT/OT
Alcohol withdrawal protocol
Encourage incentive spirometry
Continue DVT prophylaxis
Elevate legs to decrease edema
Patient agreeable to SNF, awaiting authorizations
Patient ready for discharge once bed available
Subjective Data
-
Date of Service: September 04, 2025
Patient seen at bedside this a.m. with Dr. Fletcher. Patient complains of pain in his toes at this time. Feet appear pink and warm to the touch with palpable pulse. No events overnight.
Objective Data
-
Vital Signs
Temp Pulse Resp BP Pulse Ox
97.8 F 92 18 123/90 91
09/04/25 03:00 09/04/25 03:00 09/04/25 03:00 09/04/25 03:00 09/04/25 03:00
Intake and Output
09/03/25 09/04/25 09/05/25
06:59 06:59 06:59
Intake Total 1434 / 1434 1919
Output Total 5 / 1075 1674 / 1674
Balance 359 / 359 245 / 245
Intake:
Oral fluids 1434 / 1434 1919
Output:
Urine, Voided 5 / 1075 1674 / 1674
Other:
Number of approximated MODERATE 4
amounts of urine
Lab Results
09/03/25 06:27
09/03/25 06:27
Calcium 9.0 mg/dl (8.4-10.2) 09/03/25 06:27
Phosphorus 4.0 mg/dl (2.5-4.5) 09/02/25 06:17
Magnesium 1.9 mg/dl (1.6-2.3) 09/02/25 06:17
Total Bilirubin Cancelled 08/31/25 08:32
Direct Bilirubin Cancelled 08/31/25 08:32
AST Cancelled 08/31/25 08:32
ALT Cancelled 08/31/25 08:32
Alkaline Phosphatase Cancelled 08/31/25 08:32
Total Protein Cancelled 08/31/25 08:32
Albumin Cancelled 08/31/25 08:32
Physical Exam
-
AAOx3
No tachypnea on RA
No tachycardia at this time
Abd soft
RLE surgical sites clean dry and intact well-approximated, Exofin glue intact
all sites soft
R foot pink, warm
palpable DP pulse
Difficulties with ambulation due to pain with movement
[2025-09-04] MEDS: TOPROL XL 25 MG PO (08:01)
[2025-09-04] MEDS: LOW STRENGTH ASPIRIN 81 MG PO (08:02)
[2025-09-04] MEDS: VITAMIN B1 100 MG PO ×2 (08:02→21:21)
[2025-09-04] MEDS: PROTONIX 40 MG PO (08:02)
[2025-09-04] MEDS: FOLVITE 1 MG PO (08:02)
[2025-09-04] MEDS: ROXICODONE 5 MG PO ×5 (08:02→22:05)
[2025-09-04] MEDS: COZAAR 50 MG PO (08:03)
[2025-09-04 11:29] VITALS: BP 126/87
[2025-09-04 15:06] VITALS: BP 133/89
--- NOTE | 2025-09-04 15:33 | CM ---
CM following re: discharge planning.
Reviewed pt's chart, met with pt.
PT and OT continue recommending SNF level of care.
According to pt is medically stable to be discharged. Pt is aware, IMM reviewed, placed on chart, pt has a copy.
[facility] denied a referral. [facility] crew director is not responding neither to [facility] nor to messages and phone calls.
CM discussed with the pt other options of SNFs and pt preferred [facility] or [facility]. Pt made it very clear he does not want [place] [facility] and even that building.
A referral to [facility] and [facility] made. Awaiting for determination.
D/C plan: preferred SNF: [facility] or [facility]. .
--- NOTE | 2025-09-04 15:47 | W.DS.TRANS ---
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
-
Discharge Instructions:
Discharge Diagnosis/Procedures Right lower extremity femoral to below knee
popliteal artery bypass
Diet As tolerated
Activity No strenuous activity
Driving Restrictions No driving for 1 week
Bathing Restrictions OK to Shower
Instructions:
Stand-Alone Forms: Vascular Surg Discharge Instr
Changes to Home Medications: Yes
Discharge Medications:
DC Medications w/original date entered in [employer]
acetaminophen 325 mg tablet (Tylenol) 650 mg PO Q4H PRN pain 08/28/25
losartan 50 mg tablet 50 mg PO DAILY Blood Pressure 08/28/25
metoprolol succinate 25 mg tablet,extended release 24 hr 25 mg PO DAILY Blood Pressure 08/28/25
aspirin 81 mg chewable tablet 81 mg PO DAILY #90 tabs 09/04/25
atorvastatin 10 mg tablet 10 mg PO QPM #90 tabs 09/04/25
oxycodone 5 mg tablet 5 mg PO Q4HPRN PRN moderate pain #10 tabs 09/04/25
Home Medication Changes
Added ASA, statin and oxycodone for pain control
Pending Results: No
[2025-09-04] MEDS: LIPITOR 10 MG PO (17:49)
[2025-09-04 23:15] VITALS: BP 131/89
[2025-09-05] MEDS: ROXICODONE 5 MG PO ×4 (04:49→23:13)
--- NOTE | 2025-09-05 07:10 | W.PN.VS ---
Today's Communication / Plan
-
Below plan reviewed with on-call attending.
Assessment/Plan
-
POD5 4 RLE fem-below knee pop bypass with vein graft
Plan:
Continue to encourage ambulation
PT/OT
Alcohol withdrawal protocol
Encourage incentive spirometry
Continue DVT prophylaxis
Continue aspirin 81 mg p.o. daily and statin therapy
Elevate legs while sitting to decrease edema
Patient remains stable for discharge, awaiting placement at SNF bed
Subjective Data
-
Date of Service: September 05, 2025
Patient seen and examined at bedside, offers no complaints other than endorsing eagerness for discharge. Denies nausea, vomiting, fever, and chills. Tolerating p.o. diet. Endorses that he is continuing to work on ambulation advancements.
Objective Data
-
Vital Signs
Temp Pulse Resp BP Pulse Ox
97.5 F 90 16 131/89 92
09/04/25 23:15 09/04/25 23:15 09/04/25 23:15 09/04/25 23:15 09/04/25 23:15
Intake and Output
09/04/25 09/05/25 09/06/25
06:59 06:59 06:59
Intake Total 1919 / 1919 1800 / 1800
Output Total 5 / 1675 1470 / 1470
Balance 245 / 245 330 / 330
Intake:
Oral fluids 0 0 1800 / 1800
Output:
Urine, Voided 1675 / 1675 1470 / 1470
Lab Results
09/03/25 06:27
09/03/25 06:27
Calcium 9.0 mg/dl (8.4-10.2) 09/03/25 06:27
Phosphorus 4.0 mg/dl (2.5-4.5) 09/02/25 06:17
Magnesium 1.9 mg/dl (1.6-2.3) 09/02/25 06:17
Total Bilirubin Cancelled 08/31/25 08:32
Direct Bilirubin Cancelled 08/31/25 08:32
AST Cancelled 08/31/25 08:32
ALT Cancelled 08/31/25 08:32
Alkaline Phosphatase Cancelled 08/31/25 08:32
Total Protein Cancelled 08/31/25 08:32
Albumin Cancelled 08/31/25 08:32
Physical Exam
-
AAOx3
No tachypnea on RA
No tachycardia
Abd soft
RLE surgical sites clean dry and intact well-approximated, Exofin glue intact
all sites soft
R foot pink, warm
palpable DP pulse
Difficulties with ambulation due to pain with movement
[2025-09-05 07:15] VITALS: BP 141/98
[2025-09-05] MEDS: LOW STRENGTH ASPIRIN 81 MG PO (09:02)
[2025-09-05] MEDS: FOLVITE 1 MG PO (09:03)
[2025-09-05] MEDS: PROTONIX 40 MG PO (09:03)
[2025-09-05] MEDS: VITAMIN B1 100 MG PO ×2 (09:03→20:15)
[2025-09-05] MEDS: TOPROL XL 25 MG PO (09:03)
[2025-09-05] MEDS: COZAAR 50 MG PO (09:04)
[2025-09-05] MEDS: HEPARIN 5000 UNITS SC ×3 (09:04→23:14)
[2025-09-05 10:22] VITALS: BP 150/110; PULSE 111; O2SAT 95
--- NOTE | 2025-09-05 12:32 | CM ---
CM reviewed chart and noted dc order
Pt declined at [facility] but accepted at [facility]
Bedside visit with pt- pt refusing SNF as bed is not private at facility
Per [facility]- [facility] pending and will review referral on Sun
He is requesting to dc home with VN and new wheelchair
Discussion with vascular PA- plan to pt to stay through weekend for [facility] referral outcome
Pt not safe for home alone at this time
Pt in agreement with staying until Sunday
Discharge Disposition- SNF
[2025-09-05] MEDS: MIRALAX 17 GRAMS PO (15:33)
[2025-09-05 15:50] VITALS: BP 115/74
[2025-09-05] MEDS: LIPITOR 10 MG PO (17:27)
[2025-09-05] MEDS: DULCOLAX 10 MG RECTAL (17:30)
[2025-09-05 19:35] VITALS: BP 135/76
[2025-09-05] MEDS: MILK OF MAGNESIA 30 ML PO (20:15)
[2025-09-05 23:05] VITALS: BP 124/77
[2025-09-05] MEDS: TYLENOL 650 MG PO (23:13)
[2025-09-06 07:23] VITALS: BP 141/90
[2025-09-06] MEDS: FOLVITE 1 MG PO (08:56)
[2025-09-06] MEDS: VITAMIN B1 100 MG PO ×2 (08:56→20:19)
[2025-09-06] MEDS: LOW STRENGTH ASPIRIN 81 MG PO (08:57)
[2025-09-06] MEDS: TOPROL XL 25 MG PO (08:57)
[2025-09-06] MEDS: HEPARIN 5000 UNITS SC ×2 (08:57→16:57)
[2025-09-06] MEDS: PROTONIX 40 MG PO (08:57)
[2025-09-06] MEDS: COZAAR 50 MG PO (08:57)
[2025-09-06] MEDS: ROXICODONE 5 MG PO ×3 (09:02→19:16)
--- NOTE | 2025-09-06 12:46 | W.PN.VS ---
Today's Communication / Plan
-
Plan:
Continue to encourage ambulation
PT/OT
Alcohol withdrawal protocol
Encourage incentive spirometry
Continue DVT prophylaxis
Continue aspirin 81 mg p.o. daily and statin therapy
Elevate legs while sitting to decrease edema
Patient remains stable for discharge, awaiting placement at SNF bed
Assessment/Plan
-
POD 6 RLE fem-below knee pop bypass with vein graft
Plan:
Continue to encourage ambulation
PT/OT
Alcohol withdrawal protocol
Encourage incentive spirometry
Continue DVT prophylaxis
Continue aspirin 81 mg p.o. daily and statin therapy
Elevate legs while sitting to decrease edema
Patient remains stable for discharge, awaiting placement at SNF bed
Subjective Data
-
Date of Service: September 06, 2025
POD 6 RLE fem-below knee pop bypass with vein graft
occasional 'funny feeling' in his foot
mild edema
awaiting placement
no other complaints
Objective Data
-
Vital Signs
Temp Pulse Resp BP Pulse Ox
97.7 F 90 18 141/90 95
09/06/25 07:23 09/06/25 07:23 09/06/25 07:23 09/06/25 07:23 09/06/25 07:23
Intake and Output
09/05/25 09/06/25 09/07/25
06:59 06:59 06:59
Intake Total 1800 / 1800 1250 / 1250
Output Total 1470 / 1470 225 / 225 225 / 225
Balance 330 / 330 1025 / 1025 -225 / -225
Intake:
Oral fluids 1800 / 1800 1250 / 1250
Output:
Urine, Voided 1470 / 1470 225 / 225 225 / 225
Other:
Number of approximated SMALL 2
amounts of urine
Number of unmeasured liquid
stools
Rectum 1
Lab Results
09/03/25 06:27
09/03/25 06:27
Calcium 9.0 mg/dl (8.4-10.2) 09/03/25 06:27
Phosphorus 4.0 mg/dl (2.5-4.5) 09/02/25 06:17
Magnesium 1.9 mg/dl (1.6-2.3) 09/02/25 06:17
Total Bilirubin Cancelled 08/31/25 08:32
Direct Bilirubin Cancelled 08/31/25 08:32
AST Cancelled 08/31/25 08:32
ALT Cancelled 08/31/25 08:32
Alkaline Phosphatase Cancelled 08/31/25 08:32
Total Protein Cancelled 08/31/25 08:32
Albumin Cancelled 08/31/25 08:32
Physical Exam
-
incisions CDI
trace RLE edema
2+ DP bilaterally
foot motor/sensory intact
[2025-09-06 15:00] VITALS: BP 121/79
[2025-09-06] MEDS: LIPITOR 10 MG PO (16:58)
[2025-09-06 23:11] VITALS: BP 127/90
[2025-09-07] MEDS: HEPARIN 5000 UNITS SC ×2 (00:26→08:05)
[2025-09-07 07:20] VITALS: BP 143/97
[2025-09-07] MEDS: FOLVITE 1 MG PO (08:05)
[2025-09-07] MEDS: PROTONIX 40 MG PO (08:05)
[2025-09-07] MEDS: COZAAR 50 MG PO (08:05)
[2025-09-07] MEDS: VITAMIN B1 100 MG PO (08:05)
[2025-09-07] MEDS: TOPROL XL 25 MG PO (08:05)
[2025-09-07] MEDS: LOW STRENGTH ASPIRIN 81 MG PO (08:05)
--- NOTE | 2025-09-07 10:22 | CM ---
Addendum entered by Saul Shields 09/07/25 10:28:
IMM reviewed, placed on chart, pt has a copy.
Original Note:
CM following re: discharge planning.
Reviewed pt's chart, met with pt.
Discharge order has been in place since Sunday. pt stated he preferred to go to a SNF that offers private rooms. CM explained to the pt the situation with private rooms in SNFs, pt expressed his understanding and pt stated if [facility] does not
have a private room then he will go to [facility]. Pt expressed his deep apologies for a request for a private room stating: 'I am a very private person'.
CM spoke to [facility] director of hospitality and she confirmed that pt is accepted for admission today.
Pt stated his friend Taya will transport him to [facility].
[facility] nursing report: [phone]
Discharge instructions fax: [phone]
D/C plan: [facility].
--- NOTE | 2025-09-07 10:40 | W.PN.VS ---
Today's Communication / Plan
-
Discussed with Dr Rodriguez
Assessment/Plan
-
POD 7 RLE fem-below knee pop bypass with vein graft
Plan:
SNf bed available today, DC when transport set up
Subjective Data
-
Date of Service: September 07, 2025
Pt seen at bedside this am. Resting comfortably in the chair. States he is ambulating better today. No events overnight.
Objective Data
-
Vital Signs
Temp Pulse Resp BP Pulse Ox
97.9 F 89 16 143/97 97
09/07/25 07:20 09/07/25 07:20 09/07/25 07:20 09/07/25 07:20 09/07/25 07:20
Intake and Output
09/06/25 09/07/25 09/08/25
06:59 06:59 06:59
Intake Total 1250 / 1250 120 / 120
Output Total 225 / 225 950 / 950 325 / 325
Balance 1025 / 1025 -950 / -950 -205 / -205
Intake:
Oral fluids 1250 / 1250 120 / 120
Output:
Urine, Voided 225 / 225 950 / 950 325 / 325
Other:
Number of approximated SMALL 2
amounts of urine
Number of unmeasured liquid
stools
Rectum 1
Lab Results
09/03/25 06:27
09/03/25 06:27
Calcium 9.0 mg/dl (8.4-10.2) 09/03/25 06:27
Phosphorus 4.0 mg/dl (2.5-4.5) 09/02/25 06:17
Magnesium 1.9 mg/dl (1.6-2.3) 09/02/25 06:17
Total Bilirubin Cancelled 08/31/25 08:32
Direct Bilirubin Cancelled 08/31/25 08:32
AST Cancelled 08/31/25 08:32
ALT Cancelled 08/31/25 08:32
Alkaline Phosphatase Cancelled 08/31/25 08:32
Total Protein Cancelled 08/31/25 08:32
Albumin Cancelled 08/31/25 08:32
Physical Exam
-
AAOx3
No tachypnea on RA
No tachycardia
Abd soft
RLE surgical sites clean dry and intact well-approximated, Exofin glue intact
all sites soft
R foot pink, warm
palpable DP pulse
[2025-09-07 11:48] VITALS: BP 138/83
[2025-09-07] MEDS: TYLENOL 650 MG PO (13:14)
== END 2025-09-07 13:34 | DRG 263 ==
LOC: 2 SOUTH 06:23
PROVIDERS: Nurse Practitioner; Nurse Practitioner Acute Care; ADMITTING PHYSICIAN Surgery Vascular Surgery; CONSULT PHYSICIAN Internal Medicine Critical Care Medicine; PRIMARYCARE PHYSICIAN Physician Assistant
PROC: 06BP0ZZ Excision of Right Saphenous Vein, Open Approach (ICD-10-PCS; 2025-08-31)
PROC: 041K09L Bypass Right Femoral Artery to Popliteal Artery with Autologous Venous Tissue, Open Approach (ICD-10-PCS; 2025-08-31)
DX: I70.221 Atherosclerosis of native arteries of extremities with rest pain, right leg (principal); I74.3 Embolism and thrombosis of arteries of the lower extremities; E87.1 Hypo-osmolality and hyponatremia; F17.210 Nicotine dependence, cigarettes, uncomplicated; K21.9 Gastro-esophageal reflux disease without esophagitis; I10 Essential (primary) hypertension; E03.9 Hypothyroidism, unspecified; E83.51 Hypocalcemia; E78.5 Hyperlipidemia, unspecified; Z79.899 Other long term (current) drug therapy
CPT/HCPCS: 35556; 71045; 80048; 80306; 80307; 81003; 81015; 82010; 82077; 82962; 82977; 83735; 84100; 85027; 85610; 85730; 86850; 86900; 86901; 93005; 94640; 97116; 97163; 97167; 97530; 99406

== ENCOUNTER → 2025-09-10 11:03 | Outpatient (REF) | payer OTHER, MEDICARE, SELFPAY ==
[2025-09-10 11:26] LABS: Hematocrit 42.8 % (39.0-52.0); Hemoglobin 14.7 g/dL (13.0-18.0); Mean Corp Hgb Conc. 34.3 g/dL (33.0-37.0); Mean Corpuscular Volume 98.8 fL (80.0-94.0); Nucleated Red Blood Cells % 0 % (-); Platelet Count 407 10^3/uL (130-400); Red Cell Dist. Width 12.6 % (11.5-14.5)
[2025-09-10 14:09] LABS: Blood Urea Nitrogen 11 mg/dl (9-20); Calcium 9.3 mg/dl (8.4-10.2); Carbon Dioxide 23 mmol/L (22-30); Chloride 99 mmol/L (98-107); Glucose 109 mg/dl (70-99); Potassium 4.8 mmol/L (3.5-5.1); Sodium 128 mmol/L (135-145); eGFR > 60.00
== END ==
LOC: OLABP 11:03
PROVIDERS: ATTENDING PHYSICIAN Family Medicine
DX: I10 Essential (primary) hypertension (principal); I70.221 Atherosclerosis of native arteries of extremities with rest pain, right leg; I73.9 Peripheral vascular disease, unspecified; E03.9 Hypothyroidism, unspecified; E78.5 Hyperlipidemia, unspecified; K21.9 Gastro-esophageal reflux disease without esophagitis; Z48.812 Encounter for surgical aftercare following surgery on the circulatory system; Z72.0 Tobacco use
CPT/HCPCS: 36415; 80048; 85025

== ENCOUNTER → 2025-09-14 10:02 | Outpatient (REF) | payer OTHER, MEDICARE, SELFPAY ==
[2025-09-14 11:37] LABS: Blood Urea Nitrogen 12 mg/dl (9-20); Calcium 9.3 mg/dl (8.4-10.2); Carbon Dioxide 27 mmol/L (22-30); Chloride 99 mmol/L (98-107); Glucose 94 mg/dl (70-99); Potassium 4.8 mmol/L (3.5-5.1); Sodium 130 mmol/L (135-145); eGFR > 60.00
== END ==
LOC: OLABP 10:02
PROVIDERS: ATTENDING PHYSICIAN Family Medicine
DX: Z48.812 Encounter for surgical aftercare following surgery on the circulatory system (principal); I70.221 Atherosclerosis of native arteries of extremities with rest pain, right leg; I73.9 Peripheral vascular disease, unspecified; E03.9 Hypothyroidism, unspecified; E78.5 Hyperlipidemia, unspecified; Z72.0 Tobacco use; K21.9 Gastro-esophageal reflux disease without esophagitis
CPT/HCPCS: 36415; 80048

== ENCOUNTER → 2025-10-09 08:01 | Outpatient (REF) | payer MEDICARE, SELFPAY | LOC: DHVS 08:01 | PROVIDERS: ATTENDING PHYSICIAN Physician Assistant; FAMILY PHYSICIAN Physician Assistant | DX: I73.9 Peripheral vascular disease, unspecified (principal) | CPT/HCPCS: 93922; 93925 ==